=== PATIENT | male | born 1955 | race Caucasian/White ===

== ENCOUNTER → 2016-10-19 | Outpatient (CLI) | payer BC ==
--- NOTE | 2016-10-19 13:07 | DIAGNOSTIC IMAGING REPORT ---
HEAD CT NONCONTRAST CT DOSE: 537.48 mGy.cm HISTORY: SYNCOPE,POST CONCUSSION HEADACHES TECHNIQUE: Multiaxial CT images of the head were performed without the use of intravenous contrast. Automated exposure control was utilized for this study. Comparison: None. Findings: The paranasal sinuses and mastoid air cells are clear. The calvarium and skull base are intact. The ventricles and sulci are within normal limits. There is no mass, hematoma, midline shift, or acute infarct. Impression: No acute intracranial abnormality. Electronically signed by: Wayne Lopez M.D. 10/19/2016 1:05 PM Dictated Date/Time: 10/19/2016 12:58 PM
== END | disposition home or self-care (01) ==
LOC: C.CTS 12:13
PROVIDERS: ATTEND Internal Medicine Geriatric Medicine
DX: G44.309 Post-traumatic headache, unspecified, not intractable (principal); R55 Syncope and collapse